=== PATIENT | female | born 1985 | race Caucasian/White ===

== ENCOUNTER → 2017-04-26 07:25 | Outpatient (CLI) | payer BC ==
[~2017-04-26 07:25] MED LIST: CELEXA20 MG PO; HYDROCODON-ACE1 EAC7 PO; NEXIUM40 MG PO; ZYRTEC10 MG PO
[2017-06-06 10:44] VITALS: BMI 23.7
== END | disposition home or self-care (01) ==
LOC: D.US 04-22 11:30
DX: R10.13 Epigastric pain (principal)

== ENCOUNTER → 2017-05-03 07:21 | Outpatient (CLI) | payer BC ==
[2017-06-06 10:44] VITALS: BMI 23.7
== END | disposition home or self-care (01) ==
LOC: D.NM 07:21
DX: R10.13 Epigastric pain (principal)

== ENCOUNTER 2017-06-06 07:12 | Day surgery (SDC) | payer BC ==
[~2017-06-06] VITALS: Ht 160 cm; Wt 60.8 kg
[~2017-06-06 07:12] MED LIST changes: -HYDROCODON-ACE1 EAC7 PO
[2017-06-06 08:23] LABS: HEMATOCRIT 38.7 % (36.0-48.0); HEMOGLOBIN 12.5 g/dL (12-16); MCH 28.5 pg (26.0-34.0); MCHC 32.3 g/dL (31.0-37.0); MCV 88.4 fL (80.0-100.0); MEAN PLATELET VOLUME 10.9 fL (7.4-10.4); RBC 4.38 10x6/uL (4.00-5.40); RDW 13.2 % (11.5-14.5); WBC 4.5 10x3/uL (4.8-10.8)
[2017-06-06 10:44] VITALS: BP 99/65; Ht 160 cm; Wt 60.8 kg
[2017-06-06 11:08] LABS: HCG SERUM NEGATIVE (NEGATIVE)
[2017-06-06] MEDS ORDERED: HYDROCODON-ACE1 EAC7 PO (14:11)
== END 2017-06-06 16:25 | disposition home or self-care (01) ==
LOC: D.OPS 07:12 → D.PAN 10:00 → D.OPS 16:25
PROVIDERS: Anesthesiology
DX: K82.8 Other specified diseases of gallbladder (principal); K21.9 Gastro-esophageal reflux disease without esophagitis; Z01.812 Encounter for preprocedural laboratory examination

== ENCOUNTER 2018-06-05 09:01 | Day surgery (SDC) | payer BC ==
--- NOTE | 2018-06-02 22:21 | HP ---
PATIENT: MYRA MARSHALL MEDICAL RECORD: [id number] ACCOUNT: [id number] LOCATION:[facility] : 81 ADMISSION DATE: 06/05/18 PCP: ANALI WHITE HISTORY AND PHYSICAL EXAMINATION HISTORY: Myra is 33 years old. She has a large solitary thyroid nodule that has been symptomatic. She is being admitted for right thyroid lobectomy, possible total. PAST MEDICAL HISTORY: Otherwise negative. PAST SURGICAL HISTORY: Cholecystectomy in May of 2017. CURRENT MEDICATIONS: Citalopram and Zyrtec. ALLERGIES: No known drug allergies. PHYSICAL EXAMINATION: GENERAL: Healthy appearing. Developmentally normal. FACE: Normal and symmetric. No lesions. EYES: Sclerae and conjunctivae are normal. EARS: Canals and TMs are normal. NOSE: No masses, polyps, or drainage. ORAL CAVITY AND OROPHARYNX: Normal. Tongue protrudes in the midline. NECK: She has visible right thyroid nodule that arises when she swallows. It is about 3 cm to palpation. CHEST: Clear. CARDIOVASCULAR: Regular rate and rhythm. No murmur. EXTREMITIES: Normal. FNA was benign in appearance. Her preop TSH was 1.6. IMPRESSION: Right dominant symptomatic thyroid nodule. PLAN: Right thyroidectomy with possible total thyroidectomy. TRANSINT:[id number] Voice Confirmation ID: [id number] DOCUMENT ID: [id number] ROSALIE DUNN MD at 2221 CC: [id number] DICTATION DATE: 06/01/18 1529 MEDICATION NURSE: 06/01/18 1618 PRE IN [id number] [place] [address]
[~2018-06-05] VITALS: Ht 160 cm; Wt 59.0 kg
[~2018-06-05 09:01] MED LIST changes: +HYDROCODON-ACE1 EAC7 PO
[2018-06-05 09:32] LABS: HEMATOCRIT 39.3 % (36.0-48.0); MCH 29.3 pg (26.0-34.0); MCHC 33.1 g/dL (31.0-37.0); MCV 88.7 fL (80.0-100.0); MEAN PLATELET VOLUME 10.4 fL (7.4-10.4); RBC 4.43 10x6/uL (4.00-5.40); RDW 13.3 % (11.5-14.5); WBC 4.2 10x3/uL (4.8-10.8)
[2018-06-05 09:58] VITALS: BP 96/57; BMI 23.0
[2018-06-05 10:16] LABS: HCG URINE NEGATIVE (NEGATIVE)
--- NOTE | 2018-06-05 11:03 | NUR ---
F/U APPT W/ DR. DUNN IS SCHEDULED FOR 06/09/18 AT 1300
--- NOTE | 2018-06-05 16:30 | NUR ---
PATIENT MOVED TO ROOM 2227 VS: 104/54, 97, O2 SAT 96% ON ROOM AIR., 12. AROUSES EASILY DRAIN INTACT. C/L WITHIN REACH
--- NOTE | 2018-06-05 17:15 | NUR ---
PATIENT IN BED, SKIN W/D TO TOUCH, COLOR PINK, RESP. REGULAR AND EVEN AT 16. DRAIN INTACT TO MIDDLE OF THROAT, PATIENT DENIES C/O PAIN WHEN ASKED.
[2018-06-05 18:02] VITALS: BP 104/56; Ht 160 cm; Wt 59.0 kg
[2018-06-05 21:52] VITALS: BP 105/60
--- NOTE | 2018-06-06 01:33 | NUR ---
RESTING IN BED WITH NO NEEDS NO S/S OF DISTRESS CALL LIGHT IN REACH
[2018-06-06 04:50] VITALS: BP 90/54
--- NOTE | 2018-06-06 07:50 | NUR ---
PT AOX4 RESP EVEN AND NONLABORED PT DENIES NEEDS AT THIS TIME IV TO RIGHT FOREARM PATENT AND INTACT AT THIS TIME SRX2 BED AT LOWEST SETTING CALL LIGHT WITHIN REACH WILL CONTINUE TO MONITOR
[2018-06-06 08:36] VITALS: BP 89/45
--- NOTE | 2018-06-06 11:42 | OP ---
PATIENT NAME: BRITTANEY MARSHALL MEDICAL RECORD: [id number] :81 LOCATION:[id number] ADMISSION DATE:06/05/18 SURGEON: CLEMENTE DUNN MD DATE OF OPERATION: 06/05/2018 PREOPERATIVE DIAGNOSIS: Right thyroid nodule. POSTOPERATIVE DIAGNOSIS: Right thyroid nodule. PROCEDURE: Right thyroid lobectomy. SURGEON: Clemente Dunn MD ANESTHESIA: General orotracheal. BLOOD LOSS: Less than 5 cc. SPECIMENS: Right thyroid lobe. FINDINGS: On frozen section, benign thyroid nodule. DRAINS: Single J-P through separate stab incision inferior to the wound. COMPLICATIONS: None. DISPOSITION: Recovery, stable. DESCRIPTION OF PROCEDURE: She was brought to the operating room, placed in the supine position, sedated and intubated by anesthesia. She was positioned. Skin crease was chosen about detention between the cricoid and the sternal notch. It was injected with 1% lidocaine with 1:100,000 epinephrine. She was prepped and draped in the usual sterile fashion. A #15 blade was used to make a horizontal incision, was taken down to the fascia through the platysma. Flaps were elevated superiorly and inferiorly. Four separate 2-0 silk stick ties were placed for retraction. The fascia and the strap muscles were divided in the midline. Blunt dissection of the left thyroid lobe on palpation was perfectly normal. On the right side, obviously, it was very large and dominant nodule, high in the right thyroid lobe. It was dissected out inferiorly, exposing the parathyroid which was visualized and recurrent laryngeal nerve. Then superiorly, the pedicle was dissected out and was grasped with a right angle clamp, tied off, and divided. It was tied with 2-0 silk tie. Then, the gland was rotated medially. Some fascia and small vessels were divided. Bipolar cautery was used to stop bleeding. This was rolled up medially on to the thyroid cartilage and the isthmus, which was fairly small, was divided with cautery. Right thyroid lobe was sent as specimen for frozen, returned as benign thyroid nodule. The wound bed was carefully inspected. There was really no significant bleeding. It was irrigated and completely clean and dry. A drain was placed through separate stab incision inferior to the wound. Platysma muscles were loosely approximated with a couple of 3-0 interrupted sutures. The platysma layer of the wound was closed with interrupted 4-0 Vicryl. The skin was closed with running subcuticular 6-0 Prolene. Steri-Strips and Mastisol were applied. Drain stitch was applied. She was awakened, extubated, and transported to recovery in good condition. No complications. TRANSINT:[id number] Voice Confirmation ID: [id number] DOCUMENT ID: [id number] OPERATIVE REPORT [id number] BRITTANEY MARSHALL, CLEMENTE DOOLEY at 1142 CC: [id number] DICTATION DATE: 06/05/18 1515 COMMUNICATION SKILLS INSTRUCTOR: 06/05/18 1924 ADM IN [facility] [address] [place] [address]
[2018-06-06] MEDS ORDERED: NORCO 5/325 TAB1 TAB PO (12:43)
--- NOTE | 2018-06-06 14:17 | NUR ---
IV DISCONTINUED WITH CATHETER INTACT AT THIS TIME PT HANDED ONE PAPER PRESCRIPTION FOR NORCO 5/325 AT THIS TIME PT GIVEN DISCHARGE INSTRUCTIONS AND VERBALIZES UNDERSTANDING AT THIS TIME
--- NOTE | 2018-06-06 14:30 | NUR ---
PT TAKEN VIA WHEELCHAIR VIA PRIVATE VEHICLE AT THIS TIME
--- NOTE | 2018-06-07 09:15 | MORECARE ---
CASE MANAGEMENT DISCHARGE SUMMARY PATIENT: BRITTANEY MARSHALL UNIT: [id number] ADM DATE: 06/05/18 AGE: 33 : 81 SEX: F ROOM/BED: D.2227 AUTHOR: ROMINA TORRES PHYSICIAN: REFERRING PHYSICIAN: ROSALIE DUNN MD DATE OF SERVICE: 06/07/18 Discharge Plan Patient Name: BRITTANEY MARSHALL Facility: [facility]:[place] : 1985 Planned Disposition: Anticipated Discharge Date: Discharge Date: 06/06/2018 Expected LOS: 0 Initial Reviewer: [email or web address] Initial Review Date: 06/07/2018 Generated: 06/07/18 10:14 am Patient Name: BRITTANEY MARSHALL Page [id number] at 0915 All edits/amendments must be made on the electronic document DICTATION DATE: 06/07/18913 MAJOR CASE DETECTIVE: HOMER 06/07/18913 RPT#: [id number] DC DATE:06/06/18 STATUS: DIS IN [facility] [address] [place] [address] END OF REPORT
== END 2018-06-06 14:56 | disposition home or self-care (01) ==
LOC: OBSVTIME → D.SDCHOLD 09:01 → D.MS 09:01 → D.SDCHOLD 09:01 → OBSVTIME 09:01 → D.OPS 09:01 → D.SDCHOLD 09:15 → D.MS 16:07 → D.OPS 06-06 14:56 → D.MS 06-06 14:56
PROVIDERS: Anesthesiology; Otolaryngology
DX: D34 Benign neoplasm of thyroid gland (principal); Z79.899 Other long term (current) drug therapy; Z01.812 Encounter for preprocedural laboratory examination